=== PATIENT | female | born 1955 | race Caucasian/White ===

== ENCOUNTER → 2016-07-23 | Outpatient (CLI) | payer BC ==
[~2016-07-23] MED LIST: AMLO2.5T PO; AMT50 PO; ASPEC81 PO; ASPI81TA28 PO; CALC600T9 PO; CALCTAB5 PO; CITA10TA4 PO; CLX/20 PO; EFFSR75 PO; LISI-461 PO; MULT-506 PO; NXM/40 PO; OMEG10007 PO; PRLSR20 PO; PRM625 PO; SIMV20TA2 PO; VITACAP26 PO
--- NOTE | 2016-07-24 13:46 | MAMMOGRAPHY REPORT ---
BILATERAL DIGITAL SCREENING MAMMOGRAM TOMOSYNTHESIS WITH CAD: 07/23/2016 CLINICAL HISTORY: Routine screening. Patient has no complaints. TECHNIQUE: Breast tomosynthesis in addition to standard 2D mammography was performed. Current study was also evaluated with a Computer Aided Detection (CAD) system. COMPARISON: Comparison is made to exams dated: 06/27/2015 mammogram, 06/23/2013 mammogram, 06/26/2014 mammogram, 06/22/2012 mammogram, 05/23/2011 ultrasound, and 05/29/2010 aspiration - [facility]. BREAST COMPOSITION: There are scattered areas of fibroglandular density in both breasts. FINDINGS: There are stable benign-appearing coarse calcifications within the left breast. Stable no dularity within the anterior right breast. No new suspicious mass, architectural distortion or clus ter of microcalcifications is seen. IMPRESSION: ACR BI-RADS CATEGORY 1: NEGATIVE There is no mammographic evidence of malignancy. A 1 year screening mammogram is recommended. The p atient will receive written notification of the results. Approximately 10% of breast cancers are not detected with mammography. A negative mammographic repor t should not delay biopsy if a clinically suggestive mass is present. Kimberly Meneses M.D. ay/:07/23/2016 15:45:46 Physician Practice Consultant: Tori WATTS(R)(M), [facility] letter sent: Normal 1/2 BI-RADS Code: ACR BI-RADS Category 1: Negative
== END | disposition home or self-care (01) ==
LOC: C.MAMM 15:04
PROVIDERS: ATTEND Obstetrics & Gynecology
DX: Z12.31 Encounter for screening mammogram for malignant neoplasm of breast (principal)

== ENCOUNTER 2016-09-18 12:22 | Emergency (ER) | payer BC ==
[~2016-09-18] VITALS: Ht 167.6 cm; Wt 66.0 kg
[~2016-09-18 12:22] MED LIST changes: -AMLO2.5T PO; -AMT50 PO; -ASPI81TA28 PO; -CALC600T9 PO; -CITA10TA4 PO; -CLX/20 PO; -NXM/40 PO; -OMEG10007 PO; -SIMV20TA2 PO; -VITACAP26 PO
[2016-09-18 12:27] VITALS: Ht 167.6 cm; Wt 66.0 kg
[2016-09-18 12:38] VITALS: O2SAT 98
[2016-09-18 13:12] LABS: BASO % 0.5 %; BASO ABS # 0.03 K/uL (0-0.2); COMPLETE YES; EOS % 3.1 %; HEMATOCRIT 40.7 % (37-47); IG% 0.2 %; LYMPH % 28.4 %; LYMPH ABS # 1.75 K/uL (1.2-3.4); MEAN CELL VOLUME 94.2 fL (80-100); MEAN CORPUSCULAR HEMOGLOBIN 32.6 pg (25-34); MEAN CORPUSCULAR HGB CONC 34.6 g/dl (32-36); MEAN PLATELET VOLUME 10.4 fL (7.4-10.4); MONO % 10.4 %; NEUT % 57.4 %; PLATELET COUNT 256 K/uL (130-400); RED BLOOD COUNT 4.32 M/uL (4.2-5.4); WHITE BLOOD COUNT 6.16 K/uL (4.8-10.8)
[2016-09-18] MEDS ORDERED: SODIUM CHLORIDE 0.9% 1000ML 1,000 ML IV ONE (13:15)
[2016-09-18] MEDS ORDERED: NITROGLYCERIN OINT 2% 1GM PACKET EXT ONE (13:15)
[2016-09-18 13:19] LABS: BUN/CREATININE RATIO 19.1 (10-20); CALCIUM 9.3 mg/dl (8.5-10.1); CREATININE 0.7 mg/dl (0.60-1.20); POTASSIUM 3.8 mmol/L (3.5-5.1)
[2016-09-18] MEDS ORDERED: CALC600T9 PO (13:24)
[2016-09-18] MEDS ORDERED: AMLO2.5T PO (13:24)
[2016-09-18] MEDS ORDERED: OMEG10007 PO (13:24)
[2016-09-18] MEDS ORDERED: SIMV20TA2 PO (13:24)
[2016-09-18] MEDS ORDERED: CLX/20 PO (13:24)
[2016-09-18] MEDS ORDERED: VITACAP26 PO (13:24)
[2016-09-18] MEDS ORDERED: NXM/40 PO (13:25)
[2016-09-18] MEDS ORDERED: ASPI81TA28 PO (13:25)
[2016-09-18 13:28] LABS: URINE APPEARANCE CLEAR (CLEAR); URINE BILIRUBIN NEG (NEG); URINE COLOR YELLOW; URINE NITRITE NEG (NEG); URINE PH 6.5 (4.5-7.5); URINE SPECIFIC GRAVITY 1.001 (1.000-1.030); UROBILINOGEN NEG (NEG); ZZUR CULT IF INDIC CLEAN CATCH NO
[2016-09-18 13:30] LABS: ALB/GLOB RATIO 1.1 (0.9-2); CKMB/CK RATIO 2.3 (0-3.0); THYROID STIMULATING HORMONE 2.44 uIu/ml (0.300-4.500)
[2016-09-18 13:35] LABS: MANUAL MICROSCOPIC REQUIRED? NO; REVIEW REQ? NO
--- NOTE | 2016-09-18 14:04 | DIAGNOSTIC IMAGING REPORT ---
CHEST 2 VIEWS ROUTINE CLINICAL HISTORY: Atypical chest pain COMPARISON STUDY: 12/06/2006 FINDINGS: The cardiac and mediastinal contours are normal. There is no evidence of focal pulmonary consolidation. There is no evidence of failure. No pleural effusions are visualized.[ IMPRESSION: No active disease in the chest. Electronically signed by: Дмитрий Michelle M.D. 09/18/2016 2:03 PM Dictated Date/Time: 09/18/2016 2:02 PM
--- NOTE | 2016-09-18 14:17 | EMERGENCY ROOM VISIT NOTE ---
ED Visit Note First contact with patient: 12:50 This Patient was discussed with the physician Strap Buckler, Axel Rosas PA-C. The pertinent historical and physical exam findings were confirmed. I agree with the studies ordered and with the interpretations of these studies. I agree with the disposition and care plan.
[2016-09-18 15:48] VITALS: BP 126/71; PULSE 79; TEMP 36.4; O2SAT 98
--- NOTE | 2016-09-18 19:59 | EMERGENCY ROOM VISIT NOTE ---
History First contact with patient: 12:50 Chief Complaint: CHEST PAIN Stated Complaint: CHEST PAIN/TIGHTNESS Nursing Triage Summary: pain in abd that went into her chest that has gotten better but has achy feeling in left side sx started 90 min ago History of Present Illness The patient is a 60 year old female who presents to the Emergency Room with complaints of chest pain that started in her abdomen and radiated upwards today. The patient states that her discomfort began about 90 minutes prior to arrival. Her discomfort was initially sharp, but is now dull. The patient has a past history of Prinzmetal's angina and does follow with cardiology. She states that she has had similar symptoms in the past, and this is not the worst pain that she has ever had. She contacted her cardiology office, and was not able to speak with her oil drilling engineer. Nursing instructed her to come to the ER for evaluation, prompting the patient's presentation. The patient has not had recent fever or chills. No shortness of breath or dyspnea on exertion. She does not have nausea, vomiting, or persistent abdominal pain. She did take 324 mg aspirin prior to arrival in the ER. She rates her current discomfort a 2/10. Review of Systems More than 10 systems were reviewed and otherwise negative with the exception of history of present illness. Past Medical/Surgical History No chronic medical disease Family History No pertinent family history Social History Smoking Status: Never Smoker Housing Status: lives with family Occupation Status: employed Current/Historical Medications Scheduled Amlodipine (Norvasc), 2.5 MG PO DAILY Aspirin (Aspirin Ec), 81 MG PO DAILY Calcium Carbonate-Vitamin D (Calcium + D), 1 TAB PO BID Citalopram (Citalopram Hydrobromide), 1 TAB PO DAILY Esomeprazole Magnesium (Nexium), 40 MG PO DAILY Fish Oil (Rye-3), 1 CAP PO DAILY Multivitamin (Multivitamin), 1 TAB PO DAILY Simvastatin (Zocor), 1 TAB PO HS Vitamins C & E (Vitamin C), 1 TAB PO DAILY Allergies Coded Allergies: Sulfasalazine (Unverified Allergy, Unknown, unknown, 09/18/16) Physical Exam Vital Signs Date Time Temp Pulse Resp B/P Pulse Ox O2 Delivery O2 Flow Rate FiO2 09/18/16 15:48 36.4 79 18 126/71 98 09/18/16 15:47 79 18 126/71 98 Room Air 09/18/16 13:37 77 18 130/77 98 Room Air 09/18/16 13:11 70 18 125/76 98 Room Air 09/18/16 12:49 82 09/18/16 12:38 98 Room Air 09/18/16 12:27 36.4 78 20 157/73 98 Pain Rating (0-10): 0 Physical Exam VITALS: Vitals are noted on the nurse's note and reviewed by myself. Vital signs stable. GENERAL: Well-developed, well-nourished, white female, who is in no acute distress and resting comfortably. Patient is cooperative with the examination. HEAD: Normocephalic atraumatic. EARS: External ear normal. External auditory canals clear, tympanic membranes pearly cisse without erythema or effusion bilaterally. EYES: Pupils equal round and reactive to light and accommodation. Conjunctivae without injection, sclerae without icterus. Extraocular movements intact. NOSE: Patent, turbinates without inflammation or discharge. MOUTH: Mucous membranes moist. Tonsils are not enlarged. Pharynx without erythema, blood, or exudate. Uvula midline. Airway patent. NECK: Supple without nuchal rigidity. No lymphadenopathy. No thyromegaly. Cervical spine is nontender. HEART: Regular rate and rhythm without murmurs gallops or rubs. LUNGS: Clear to auscultation bilaterally without wheezes, rales or rhonchi. No retractions or accessory muscle use. ABDOMEN: Positive normal bowel sounds x 4. Soft, nontender, without masses or organomegaly. No guarding or rebound tenderness. Medical Decision & Procedures ER Provider Diagnostic Interpretation: CHEST 2 VIEWS ROUTINE CLINICAL HISTORY: Atypical chest pain COMPARISON STUDY: 12/06/2006 FINDINGS: The cardiac and mediastinal contours are normal. There is no evidence of focal pulmonary consolidation. There is no evidence of failure. No pleural effusions are visualized.[ IMPRESSION: No active disease in the chest. Laboratory Results 09/18/16 12:45 Red Blood Count 4.32, Mean Corpuscular Volume 94.2, Mean Corpuscular Hemoglobin 32.6, Mean Corpuscular Hemoglobin Concent 34.6, Mean Platelet Volume 10.4, Neutrophils (%) (Auto) 57.4, Lymphocytes (%) (Auto) 28.4, Monocytes (%) (Auto) 10.4, Eosinophils (%) (Auto) 3.1, Basophils (%) (Auto) 0.5, Neutrophils # (Auto ) 3.54, Lymphocytes # (Auto) 1.75, Monocytes # (Auto) 0.64, Eosinophils # (Auto ) 0.19, Basophils # (Auto) 0.03 09/18/16 12:45 Test 09/18/16 12:45 09/18/16 13:16 09/18/16 14:43 White Blood Count 6.16 K/uL (4.8-10.8) Red Blood Count 4.32 M/uL (4.2-5.4) Hemoglobin 14.1 g/dL (12.0-16.0) Hematocrit 40.7 % (37-47) Mean Corpuscular Volume 94.2 fL (80-100) Mean Corpuscular Hemoglobin 32.6 pg (25-34) Mean Corpuscular Hemoglobin Concent 34.6 g/dl (32-36) Platelet Count 256 K/uL (130-400) Mean Platelet Volume 10.4 fL (7.4-10.4) Neutrophils (%) (Auto) 57.4 % Lymphocytes (%) (Auto) 28.4 % Monocytes (%) (Auto) 10.4 % Eosinophils (%) (Auto) 3.1 % Basophils (%) (Auto) 0.5 % Neutrophils # (Auto) 3.54 K/uL (1.4-6.5) Lymphocytes # (Auto) 1.75 K/uL (1.2-3.4) Monocytes # (Auto) 0.64 K/uL (0.11-0.59) Eosinophils # (Auto) 0.19 K/uL (0-0.5) Basophils # (Auto) 0.03 K/uL (0-0.2) RDW Standard Deviation 44.7 fL (36.4-46.3) RDW Coefficient of Variation 12.9 % (11.5-14.5) Immature Granulocyte % (Auto) 0.2 % Immature Granulocyte # (Auto) 0.01 K/uL (0.00-0.02) Anion Gap 9.0 mmol/L (3-11) Est Creatinine Clear Calc Drug Dose 80.0 ml/min Estimated GFR () 109.1 Estimated GFR (Non- 94.2 BUN/Creatinine Ratio 19.1 (10-20) Calcium Level 9.3 mg/dl (8.5-10.1) Total Bilirubin 0.3 mg/dl (0.2-1) Aspartate Amino Transf (AST/SGOT) 19 U/L (15-37) Alanine Aminotransferase (ALT/SGPT) 35 U/L (12-78) Alkaline Phosphatase 60 U/L (45-117) Total Creatine Kinase 80 U/L (26-192) Creatine Kinase MB 1.8 ng/ml (0.5-3.6) Creatine Kinase MB Ratio 2.3 (0-3.0) Total Protein 7.4 gm/dl (6.4-8.2) Albumin 3.8 gm/dl (3.4-5.0) Globulin 3.6 gm/dl (2.5-4.0) Albumin/Globulin Ratio 1.1 (0.9-2) Lipase 106 U/L (73-393) Thyroid Stimulating Hormone (TSH) 2.440 uIu/ml (0.300-4.500) Urine Color YELLOW Urine Appearance CLEAR (CLEAR) Urine pH 6.5 (4.5-7.5) Urine Specific [place] 1.001 (1.000-1.030) Urine Protein NEG (NEG) Urine Glucose (UA) NEG (NEG) Urine Ketones NEG (NEG) Urine Occult Blood NEG (NEG) Urine Nitrite NEG (NEG) Urine Bilirubin NEG (NEG) Urine Urobilinogen NEG (NEG) Urine Leukocyte Esterase NEG (NEG) Bedside Troponin I 0.000 ng/ml (0-0.045) Medications Administered Medications (Trade) Dose Ordered Sig/Nahed Route Start Time Stop Time Status Last Admin Dose Admin Sodium Chloride (Nss 1000ml) 1,000 ml @ 999 mls/hr Q1H1M ONCE IV 09/18/16 13:15 09/18/16 14:15 DC 09/18/16 13:11 999 MLS/HR Nitroglycerin (Nitroglycerin 2% Oint) 1 inch NOW ONCE EXT 09/18/16 13:15 09/18/16 13:16 DC 09/18/16 13:11 1 INCH ED Course Physical exam and history were performed. Nursing notes and EMR were reviewed. Patient appears to have chest pain for the past 90 minutes. The patient does not appear toxic on examination. EKG was performed and was normal sinus rhythm without acute ST elevation or ischemia. IV access was established and labs were obtained. The patient was hydrated and medicated as above. Chest x-ray was performed. The case was discussed with my attending physician, Dr. Langley, who also independently evaluated the patient and remain closely involved in care and decision making. The patient's blood work is as above and was reviewed. She does not have a significantly elevated white blood cell count, anemia, bandemia, or gross electrolyte imbalance. Lipase is nondiagnostic. Troponin 2 is negative. Repeat EKG did not show significant change or ischemic findings. Chest x-ray is without significant findings. Overall the patient appears well. She is not had any significant improvement of worsening of her symptoms after aspirin and Nitropaste. Her symptoms could certainly represent a Prinzmetal angina episode. Because of this I recommend that she follow with her oil drilling engineer by telephone tomorrow to arrange appropriate follow-up. The patient was certainly invited back to the ER with any new, worsening, or concerning symptoms. She was pleased with plan of care and was discharged home under the care of her . The chart was completed utilizing [employer] Speech Voice Recognition Software. Grammatical errors, random word insertions, pronoun errors, and incomplete sentences are an occasional consequence of this system due to software limitations, ambient noise, and hardware issues. Any formal questions or concerns about the content, text, or information contained within the body of this dictation should be directly addressed to the provider for clarification. . Medical Decision Differential diagnosis includes, but is not limited to: Myocardial infarction, dysrhythmia, pericarditis, pneumothorax, aortic aneurysm/dissection, DVT/PE, anxiety, GERD, PUD, electrolyte imbalance, thyroid disorder, pneumonia, bronchitis, pancreatitis, and others Impression Primary Impression: Central chest pain Departure Information Dispostion Home / Self-Care Condition GOOD Forms HOME CARE DOCUMENTATION FORM, IMPORTANT VISIT INFORMATION Patient Instructions [facility] Additional Instructions You were seen and evaluated today on an emergency basis only. This is not a substitute for, or an effort to provide, complete comprehensive medical care. It is not possible to recognize and treat all injuries or illnesses in a single emergency department visit. For this reason it is recommended that you followup with your primary care physician's office by telephone today to arrange a follow-up visit in the next 2 -3 days. Let them know you were in the ER to help facilitate care. Continue your at-home medications. You are welcome to return to the emergency department anytime with new, worsening, or concerning symptoms.
== END 2016-09-18 15:49 | disposition home or self-care (01) ==
LOC: C.EDB 12:23 → C.EDA 15:49
DX: R07.9 Chest pain, unspecified (principal); I20.1 Angina pectoris with documented spasm; Z79.82 Long term (current) use of aspirin

== ENCOUNTER → 2017-06-30 | Outpatient (CLI) | payer BC ==
[~2017-06-30] MED LIST changes: +AMLO2.5T PO; +AMT50 PO; -ASPEC81 PO; +ASPI81TA28 PO; +CALC600T9 PO; -CALCTAB5 PO; +CITA10TA4 PO; +CLX/20 PO; -EFFSR75 PO; -LISI-461 PO; +NXM/40 PO; +OMEG10007 PO; -PRLSR20 PO; -PRM625 PO; +SIMV20TA2 PO; +VITACAP26 PO
== END | disposition home or self-care (01) ==
LOC: C.RDSM 08:00
PROVIDERS: ATTEND Orthopaedic Surgery Sports Medicine
DX: M79.641 Pain in right hand (principal)

== ENCOUNTER → 2017-07-27 | Outpatient (CLI) | payer OTHER ==
[~2017-07-27] MED LIST changes: -CLX/20 PO
--- NOTE | 2017-07-28 07:48 | MAMMOGRAPHY REPORT ---
BILATERAL DIGITAL SCREENING MAMMOGRAM TOMOSYNTHESIS WITH CAD: 07/27/2017 CLINICAL HISTORY: Routine screening. Patient has no complaints. TECHNIQUE: Breast tomosynthesis in addition to standard 2D mammography was performed. Current study was also evaluated with a Computer Aided Detection (CAD) system. COMPARISON: Comparison is made to exams dated: 07/23/2016 mammogram, 06/27/2015 mammogram, 06/26/2014 ma mmogram, 06/23/2013 mammogram, 06/22/2012 mammogram, and 05/23/2011 mammogram - [facility]ter. BREAST COMPOSITION: There are scattered areas of fibroglandular density in both breasts. FINDINGS: Stable focal asymmetry in the left upper outer quadrant, and stable nodular asymmetry in th e lateral left breast. Scattered benign-appearing microcalcifications. No suspicious mass, architec tural distortion or cluster of suspicious microcalcifications is seen. IMPRESSION: ACR BI-RADS CATEGORY 1: NEGATIVE There is no mammographic evidence of malignancy. A 1 year screening mammogram is recommended. The pa tient will receive written notification of the results. Approximately 10% of breast cancers are not detected with mammography. A negative mammographic report should not delay biopsy if a clinically suggestive mass is present. Kimberly Meneses M.D. ay/:07/27/2017 15:44:51 Cnc Machine Setter: Cece GARCIA)(M), [facility] letter sent: Normal 1/2 BI-RADS Code: ACR BI-RADS Category 1: Negative
== END | disposition home or self-care (01) ==
LOC: C.MAMM 15:07
PROVIDERS: ATTEND Physician Assistant
DX: Z12.31 Encounter for screening mammogram for malignant neoplasm of breast (principal)

== ENCOUNTER → 2017-07-31 | Day surgery (SDC) | payer BC, OTHER ==
[2017-07-08 15:34] VITALS: Ht 167.6 cm; Wt 62.3 kg
[~2017-07-31] VITALS: Ht 167.6 cm; Wt 62.3 kg
[~2017-07-31] MED LIST changes: +BUPIVACAINE 0.5 % 5 MG/1 ML PF 10ML VIAL ONE; +CEFAZOLIN 1000MG IV PUSH 5 ML IV SCH; +FENTANYL CITRATE INJ 50 MCG/1 ML 2 ML VIAL ONE; +LACTATED RINGER'S 1000ML 1,000 ML IV SCH; +LIDOCAINE HCL 1% 20 ML VIAL ONE; +MIDAZOLAM HCL 1 MG/ML 2ML VIAL ONE; +MoRPHine SULFATE 2 MG/ML CARP IV PRN; +MoRPHine SULFATE 4 MG/ML 1 ML CARP\\VIAL IV PRN; +ONDANSETRON INJ 2 MG/ML 2 ML VIAL IV PRN; +OXYCODONE/ACETAMINOPHEN 5-325 TAB PO PRN
--- NOTE | 2017-07-31 12:53 | History & Physical Bridge - SC ---
H&P Re-Evaluation Bridge Note: I have examined the patient, reviewed the History & Physical and in the interval since the performance of the History & Physical I have noted the following changes of clinical significance: No changes noted
--- NOTE | 2017-07-31 13:54 | [facility] Post Operative Brief Note ---
Immediate Operative Summary Operative Date Jul 31, 2017. Pre-Operative Diagnosis Right thumb and right palmar cysts Post-Operative Diagnosis Same as pre-op Procedure(s) Performed 1) Right Thumb Cyst Excision. 2) Right Palmar Cyst Excision, 2nd flexor tendon sheath. Surgeon Dr. Bingham Mask Inspector Surgeon(s) Dr. Anita Huertas Estimated Blood Loss 12ML Findings As above. Fluids (cc crystalloids) 500 Specimens A.Right thumb cyst B.Right 2nd flexor tendon sheath cyst Drains n/a Anesthesia local + sedation Complication(s) None Disposition Recovery Room / PACU (Stable)
--- NOTE | 2017-07-31 13:59 | Discharge Instructions-SurgCtr ---
Discharge Instructions Date of Service Jul 31, 2017. Visit Reason for Visit: Right Thumb Cyst; Right Palmar Cyst Discharge Discharge Diagnosis / Problem: Status post excision cysts right thumb and palm. Discharge Goals Goal(s): Decrease discomfort, Improve function Activity Recommendations Activity Limitations: per Instructions/Follow-up section Exercise/Sports Limitations: gradually increase as tolerated (in 2-3 days. Do Not submerge the right hand in water for 3 weeks.) Shower/Bathe: may shower/bathe in 3 days Driving or Machine Use: Not while using narcotics Anesthesia . Post Anesthesia Instructions: If you have had General Anesthesia or IV Sedation: * Do not drive today. * Resume driving when surgeon permits. * Do not make important decisions or sign legal documents today. * Call surgeon for: 1. Temperature elevations greater than 101 degrees F. 2. Uncontrollable pain. 3. Excessive bleeding. 4. Persistent nausea and vomiting. 5. Medication intolerance (nausea, vomiting or rash). * For nausea and vomiting use only clear liquids such as: tea, soda, bouillon until nausea subsides, then gradually increase diet as tolerated. * If you have any concerns or questions, call your surgeon's office. If physician is unavailable and it is an emergency, call 911 or go to the nearest emergency room. . Instructions / Follow-Up Instructions / Follow-Up Dr. Bingham 08/13/17 3:45 pm. THU in 08/04/2017 @ 8:30 am Diet Recommendations Home Diet: resume previous diet Procedures Procedures Performed: 1) Right Thumb Cyst Excision. 2) Right Palmar Cyst Excision, 2nd flexor tendon sheath. Pending Studies Studies pending at discharge: no Medical Emergencies . Who to Call and When: Medical Emergencies: If at any time you feel your situation is an emergency, please call 911 immediately. . Non-Emergent Contact Non-Emergency issues call your: Surgeon Call Non-Emergent contact if: temperature is above 101.5, your pain is not controlled, wound has increased drainage, wound has increased redness . . "Provider Documentation" section prepared by Pb Bingham. .
--- NOTE | 2017-07-31 14:00 | [facility] Operative Report ---
Operative Report Operative Date Jul 31, 2017. Pre-Operative Diagnosis Right thumb and right palmar cysts Post-Operative Diagnosis Same as pre-op Procedure(s) Performed 1) Right Thumb Cyst Excision. 2) Right Palmar Cyst Excision, 2nd flexor tendon sheath. Surgeon Dr. Bingham Cloud [employer] Architect Surgeon(s) Dr. Anita Huertas Estimated Blood Loss 12ML Findings 1) Right thumb cystic mass with mucinous material. 2) The cyst in the palm emanated from the right second flexor tendon sheath. It also contained mucinous material. The tendon otherwise looked intact. Fluids (cc crystalloids) 500 Specimens A.Right thumb cyst B.Right 2nd flexor tendon sheath cyst Drains n/a Anesthesia local + sedation Complication(s) None Disposition Recovery Room / PACU (Stable) Implants n/a Indications The patient is a 61 year old female with a painful mass on her right thumb and palm overlying the second metacarpal head, that has not responded to conservative treatment and has been re-current. The patient understands the risks of surgery, which include but are not limited to: bleeding, infection, re- operation, damage to nerves and arteries, and continued pain. The patient understands all of these instructions and explanations, all of their questions have been satisfactorily addressed. The patient has elected to proceed with surgery and the informed consent was signed. Description of Procedure The patient was taken to the Operating Room and placed in the supine position on the operating table. After a multidisciplinary time-out was performed identifying my initials on the right upper extremity as the correct and operative limb, the patient agreed. Prior to the incision being made, 1 grams of intravenous Ancef was given. The right upper extremity was prepped and draped in the usual Orthopaedic sterile fashion. Utilizing 1% lidocaine have percent Marcaine with epinephrine for a total of 6 cc, the planned incision in the palm and a thumb digital nerve block was performed. After the local anesthetic had taken affect, the thumb was addressed first. A small 2 cm incision was made over the mass. The pea-sized mass 7 x 7 mm was completely freed and excised using a combination of blunt dissection, tenotomy, and freer. There appeared to be a small rent in the capsule at the IP joint. The wound was copiously irrigated. The capsule was closed with 3-0 Vicryl with a single simple suture. The skin was closed with 4- 0 Nylon. Next our attention was drawn to the mass in the palm overlying the second metacarpal head. A 2 cm incision was made over the mass. Blunt dissection was used to carry down to the flexor tendon to the index finger and the cyst was immediately identified emanating from the flexor tendon sheath. It was approximately 10 x 10 mm and was completely freed and excised again using a combination of blunt dissection, tenotomy's, and freer. In order to completely free the cyst, a small portion of the A1 lia needed to be released. The wound was copiously irrigated. The skin was closed with 4-0 nylon. The incision was covered with Xeroform, 2 x 2's, sterile Ghassan and an loose Coban and. The sponge and needle counts were correct. POSTOPERATIVE INSTRUCTIONS: The patient will remove the bandage in 2 days. The patient will follow-up in 10-15 days. I attest to the content of the Intraoperative Record and any orders documented therein. Any exceptions are noted below.
[2017-07-31 14:02] VITALS: TEMP 36.9
--- NOTE | 2017-07-31 14:22 | Anesthesia Progress Nt - [facility] ---
Anesthesia Post Op Note Date & Time Jul 31, 2017 at 14:22 Vital Signs Pain Intensity: 0 Vital Signs Past 12 Hours Date Time Temp Pulse Resp B/P (MAP) Pulse Ox O2 Delivery O2 Flow Rate FiO2 07/31/17 14:02 36.9 89 20 158/82 (107) 97 Room Air 07/31/17 11:05 36.9 83 16 134/81 (98) 96 Room Air Notes Mental Status: alert / awake / arousable, participated in evaluation Pt Amnestic to Procedure: Yes Nausea / Vomiting: adequately controlled Pain: adequately controlled Airway Patency, RR, SpO2: stable & adequate BP & HR: stable & adequate Hydration State: stable & adequate Anesthetic Complications: no major complications apparent
[2017-07-31 14:26] VITALS: BP 134/80; PULSE 82; O2SAT 96
== END | disposition home or self-care (01) ==
LOC: X.SURG 10:54
PROVIDERS: ATTEND Orthopaedic Surgery Sports Medicine
DX: M67.441 Ganglion, right hand (principal); M67.49 Ganglion, multiple sites